=== PATIENT | female | born 1995 | race Two or more races ===

== ENCOUNTER 2024-11-10 08:15 | Emergency (ER) | payer MEDICAID, SELFPAY ==
[2024-11-10 08:16] VITALS: PULSE 95; RESP 17; O2SAT 97; BMI 17.6
[2024-11-10 08:21] VITALS: BP 121/84; PULSE 88; RESP 18; TEMP 36.6; O2SAT 97
--- NOTE | 2024-11-10 08:22 | PC.NURSE ---
RN CALLED NEXT OF KIN AFSHIN FOR SOME INFO REGARDING PT. AFSHIN REPORTS THAT THE SEIZURE LASTED FOR 3 MIN. AFSHIN ANSWERED SOME TRIAGE QUESTION SUCH TRAVEL HX, COVID HX, SMOKING HX
[2024-11-10 08:33] VITALS: BP 123/82; PULSE 89; RESP 15; TEMP 36.4; O2SAT 98
--- NOTE | 2024-11-10 08:55 | PC.NURSE ---
Patient was BIBA due to s/p SZ activity at home. Patient has hx of SZ with last known SZ was on 07/16/23. Patient is developmentally delayed, aphasic, and bedridden. Dr. Price at bedside assessing patient at this time. Mother at bedside POC updated.
--- NOTE | 2024-11-10 09:07 | EDNOTE_ITS ---
ED General RME/HPI General Chief complaint: Seizure Stated complaint: SEIZURE Time Seen by Provider: 11/10/24 08:32 Arrival date/time: 11/10/24 08:15 RME / HPI RME / HPI narrative: DR. NGO MAIN ED EVALUATION: 29 year old female with past medical history significant for seizures on Keppra, ataxia, brain anomaly involving the cerebellum, nonverbal, bed bound, and developmental delay presents to the Emergency Department with complaint of seizure. Last break-through seizure was 1 year and 3 months ago. Per mother, she always gives her medications; today, she did take it because she takes it after breakfast and she had her seizure before. No cough, congestion, runny nose, recent sickness, nausea, vomiting, diarrhea, or other symptoms at this time. PCP: [facility] Related Data Home Medications ?Medication ?Instructions ?Recorded ?Confirmed lorazepam 2 mg tablet (Ativan) 2 mg PO QDAY PRN Seizur e Activity 10/15/20 10/15/20 Previous Rx's ?Medication ?Instructions ?Recorded levetiracetam 100 mg/mL oral 125 mg (1.25 mL) PO QDAY #125 mL 10/15/20 solution (Keppra) Allergies Allergy/AdvReac Type Severity Reaction Status Date / Time No Known Allergies Allergy Verified 10/15/20 11:34 Review of Systems Review of Systems ROS Unobtainable: unobtainable due to medical condition Past Medical History Past Medical History NEUROLOGIC: Positive Neurological Disorders and Seizures OTHER HISTORY: Positive Developmental Delay Surgical History OTHER SURGICAL HX: Ataxia Social History SMOKING STATUS: Never smoker SECOND HAND EXPOSURE: No SUBSTANCE USE: does not use ALCOHOL: Never ED Exam Narrative Physical exam: Physical Exam: General: The vital signs were reviewed. Patient is nonverbal gives no eye contact in her usual debilitated state the patient is non-toxic, in no apparent distress and appears healthy with a patent airway, no respiratory distress and has no apparent circulatory problems. Head & Scalp: Normocephalic, atraumatic. Face: Appears normal and is without lesions, deformity. Ears: Left external pinna appears normal. Right external pinna appears normal. Eyes: The sclera is anicteric. No obvious photophobia. The Left and Right Orbit/Lid/Conjunctiva appears normal without swelling, discoloration or injection. Nose: The nose is without deformity, discharge or tenderness; Throat: Appears normal. The mucous membranes are pink and moist without exudates, redness or mass seen. The tongue appears normal. Neck: The neck is supple and no apparent mass or adenopathy. Chest: The chest wall is normal in size and symmetry and has no chest wall tenderness or crepitus. The patient displays normal ventilator effort without retractions, accessory muscle use and has adequate air movement bilaterally with no wheezes and no rales. Cardiovascular: Regular rate and rhythm; No murmurs, rubs, or gallops; Gastrointestinal: The abdomen appears normal. No obvious hernias or mass. The abdomen is soft and benign, non-distended, with no pain, no guarding and no rebound tenderness. Bowel sounds are present and normal sounding. No CVA tenderness. Genitourinary: Back/Spine: Thin normal inspection Extremities/Musculoskeletal/lymphatic: The bilateral upper and lower extremities are warm. There is no evidence of arterial insufficiency. There is no evidence of venous insufficiency/edema. The patient has very thin atrophic bilateral extremities with a slight contracture Skin: The skin is warm, dry and intact. No rashes. No petechia. No purpura. No abnormal bruising. The color is appropriate with no cyanosis. Mental status/Psychiatric: Mental status is nonverbal noninteractive her usual mental status. Neurological: The patient i lies on the bed with no verbal and noninteractive with no eye contact. Eyes are open. Bilateral extremities upper and lower are all contracted and very atrophic. This is not new this is part of her chronic neurological condition Course Quality Measures none Orders Category Date Time Status Miscellaneous Nursing Order NOW Care 11/10/24 09:07 Completed levETIRAcetam INJ [Keppra Inj] Med 11/10/24 09:07 Discontinued 250 mg IVP X1 ONE Vital Signs Vital signs: Vital Signs Temperature 97.8 F 11/10/24 08:21 Pulse Rate 88 11/10/24 08:21 Respiratory Rate 18 11/10/24 08:21 Blood Pressure 121/84 11/10/24 08:21 Pulse Oximetry (%) 97 11/10/24 08:21 Oxygen Delivery Method Room Air 11/10/24 08:21 Discharge Plan Plan Patient Disposition: HOME (Self Care) Prescriptions/Referrals Prescriptions/Med Rec: No Action lorazepam [Ativan] 2 mg Tablet 2 mg PO QDAY PRN (Reason: Seizure Activity) levetiracetam [Keppra] 100 mg/mL solution 125 mg PO QDAY Qty: 125 0RF Referrals: Amor Barrett PA-C [Primary Care Provider] - In 1 week Problem List Clinical Impression: Breakthrough seizure, Generalized seizure, Seizure disorder Patient/Caregiver Discharge Instructions Additional Instructions: Continue taking the seizure medicines as prescribed. If have another seizure you are welcome to give the oral Ativan as prescribed. Return if having 2 or more seizures. Contact your doctor to discuss changing doses and keep a diary of all breakthrough seizure events. Print Language: Yoruba Stand Alone Forms: [employer] Award Info., Patient Portal Info Letter MDM Narrative [facility] hospital course: Patient had a breakthrough seizure this morning evidently they were about to administer the morning Keppra. Mom did not give any breakthrough Ativan which is prescribed and present in the room. She evidently is on a low dose of Keppra 125 mg twice a day and evidently was on higher doses but caused too much sedation. Her last breakthrough event was over a year ago in June 2023 patient is well cared for is quite clean. It sounds like the low dosing of Keppra is been working for a long time see no reason to change it for a single breakthrough event since mom's wants to make sure her mental status is alert enough to swallow medications. At this time we will administer her morning p.o. med. Will give her a low dose of Keppra 250 mg to load her just for the interim to prevent another breakthro ugh seizure. Patient's vital signs are within normal limits. She does not appear to be ill in any other way and mom states there is no other illness ongoing. They are invited to follow-up with her neurologist for reevaluation. And will watch the kid for an hour after the dosing to make sure there is no other events and then dispo. No further workup is needed at this time as this patient is a well-established seizure patient. Patient been observed since taking the Keppra and has had no further seizures is in her usual state of health and mom knows how to manage and will take her home follow-up with her neurologist. Will continue the Keppra dosing even though is a low level 125 twice a day as mentioned above. Mom knows return if getting worse in any way. Estella Goode am scribing for and in the presence of Dr. Ngo. Clinical Information Provided by parent (mother) Medical Records Reviewed [facility] Meds/Rx Considered, not Ordered Describe details: As above see no reason to increase or change dosing of medications nor add a second medicine at this time. They do have a neurologist they can consult that person further Labs/Rad/Tests considered, not Ordered Describe details: At this time there is no reason to a medical workup as the patient does not appear to have any other acute illness concurrently. Chronic Illness/Social Conditions Add or document further as needed: seizures on Keppra, ataxia, brain anomaly involving the cerebellum, nonverbal, bed bound, and developmental delay EKG EKG not done Lab Interpretation Labs: see narrative above Imaging Imaging interpretation: see narrative above Medication Administration(s) Medication Administration History Discontinued Medications Levetiracetam (Levetiracetam Inj 100 Mg/Ml Vial 5ml) 250 mg IVP X1 ONE Stop: 11/10/24 09:08 Last Admin: 11/10/24 09:24 Dose: 250 mg Documented By: DHARMESH Diagnosis Differential diagnosis: syncope, breakthough seizure, seizure Most likely dx, and/or detailed dx discussion: Breakthrough seizure Generalized seizure Seizure disorder Dispositon Disposition: Discharge Home
[2024-11-10] MEDS: levETIRAcetam INJ 100 MG/ML VIAL 5ML 250 MG IVP (09:24)
[2024-11-10 10:19] VITALS: BP 125/65; PULSE 84; RESP 15; TEMP 36.6; O2SAT 97
[2024-11-10 11:14] VITALS: PULSE 86; RESP 16; TEMP 36.6; O2SAT 99
== END 2024-11-10 11:17 | disposition home or self-care (01) ==
PROVIDERS: Emergency Provider Emergency Medicine; PCP Physician Assistant Medical
DX: R56.9 Unspecified convulsions (principal)
CPT/HCPCS: 96374; 99284; J1953

== ENCOUNTER 2025-03-28 07:49 | Inpatient (IN) | payer MEDICARE, MEDICAID, SELFPAY ==
[2025-03-28] VITALS (11 sets, daily range): BP systolic 100–127; BP diastolic 71–93; PULSE 67–157; RESP 13–20; TEMP 36.2–38.1; O2SAT 97–100; BMI 12.1
--- NOTE | 2025-03-28 07:54 | XR_ITS ---
EXAMINATION: AP chest single view TECHNIQUE: AP portable semiupright chest single view Date and time: March 28, 2025, 0809 hours, comparison July 15, 2023 INDICATIONS: Seizure today. FINDINGS: Normal heart size Air distended stomach. No aspiration pneumonia. Mild osteopenia IMPRESSION: No aspiration pneumonia
--- NOTE | 2025-03-28 07:57 | XR_ITS ---
Examination: CT brain head without contrast. 2-D sagittal coronal reconstructions Date and time of exam: March 28, 2025, 0824 hours, comparison November 11, 2021 INDICATIONS: Seizures today CTDI: vol (mGy): 46 DLP: (mGycm): 847 Technique: Multiple CT axial sections of the brain have been obtained, 5 mm slice thickness. Contrast has not been administered. 2-D sagittal, coronal reconstructions have been obtained Low dose protocols were performed. One or more of the following dose reduction techniques were used; automated exposure control, adjustment of the mA and/or KV according to patient size, use of iterative reconstruction technique. Findings: Again noted moderate ventricular enlargement Again noted cerebral calcifications primarily in the basal ganglia No interval hemorrhage or mass effect Significant atrophy Cranial vault intact IMPRESSION: No interval hemorrhage or mass effect
--- NOTE | 2025-03-28 08:08 | EKG_ITS ---
[facility] Test Date: 2025-03-28 Pat Name: JORDAN LAINEZ Department: Room: - Gender: Female [employer]: : 1995 Requested By: Mariela Peoples Order Number: [id number] Reading MD: Mariela Peoples Measurements Intervals [place] Rate: 106 P: 88 KS: 108 QRS: 107 QRSD: 80 T: 37 QT: 321 QTc: 427 Interpretive Statements SINUS TACHYCARDIA WITH SHORT KS INTERVAL RIGHT AXIS DEVIATION [QRS AXIS > 100] Compared to ECG 10/15/2020 11:26:43 Right-axis deviation now present T-wave abnormality no longer present Possible ischemia no longer present /store/S0/[id number].pdf
--- NOTE | 2025-03-28 08:25 | EDNOTE_ITS ---
<Statement entered by Letty Pickett MD - 03/28/25 17:57> I, Letty Pickett MD, have reviewed the history, exam, and assessment of the patient. I have evaluated the patient independently and agree with the plan of care documented by [ ]. All diagnostic studies were reviewed and discussed. I confirm the diagnosis as documented by the Resident. I was present during the Medical Decision Making for this patient. The patient's plan of care was created between myself and the Resident and consistent with our discussion of the patient's case. ED Seizures RME/HPI General Chief Complaint: Seizure Stated Complaint: SEIZURE Time Seen by Provider: 03/28/25 07:50 Arrival date/time: 03/28/25 07:49 RME / HPI RME / HPI Narrative: Patient is a 29-year-old female with a past medical history of seizure, developmental delay, and non-verbal who presented to the emergency room via EMS with a chief complaint of seizure that was witnessed at home by her mother. Per EMS signout patient had a seizure that lasted approximately 5 minutes appearing tonic. Patient's mother gave 2 mg of Ativan during witnessed seizure. CBC CMP Lactic CK EKG Troponin UA Sepsis Alert -->HR 130s and T 100.2 LR Bolus and Zosyn Called Next on Kin, No Answer Patient's mother stated Keppra 1000 mg IV has previous caused somnolence--->500 mg IV X 1 Related Data Home Medications ?Medication ?Instructions ?Recorded ?Confirmed lorazepam 2 mg tablet (Ativan) 2 mg PO QDAY PRN Seizur e Activity 10/15/20 03/28/25 levetiracetam 100 mg/mL oral 125 mg PO BID 03/28/25 solution (Keppra) Allergies Allergy/AdvReac Type Severity Reaction Status Date / Time No Known Allergies Allergy Verified 10/15/20 11:34 Review of Systems Review of Systems Narrative Review of Systems: General appearance: NO weight change, NO fatigue, NO weakness, NO fever, NO chills, NO night sweats, No cough Skin: NO rash, NO itching, NO sores, NO moles HEENT: NO Trauma, NO nausea, NO vomiting, NO visual changes, NO blurry vision, NO double vision, NO tinnitus, NO vertigo, NO ear discharge, NO rhinorrhea, NO stuffiness, NO sneezing, NO allergy, NO epistaxis. NO Hoarseness, NO sore throat, NO swollen neck. Cardiac: NO Palpitations, NO dyspnea on exertion, NO orthopnea, NO paroxysmal nocturnal dyspnea, NO edema Respiratory: NO Shortness of Breath, NO Wheezing, NO Cough, NO Sputum, NO hemoptysis GI:NO appetite, NO nausea, NO vomiting, NO dysphagia, NO changes in bowel fr equency, NO stool color, NO diarrhea, NO constipation, NO hemetemesis, NO hemorrhoids, NO melena, NO hematechezia, NO abdominal pain, NO jaundice Renal: NO frequency, NO hesitancy, NO urgency, NO hematuria, NO nocturia, NO incontinence MSK: NO muscle weakness, NO gout, NO arthritis, NO muscle stiffness Neuro: NO headaches, NO tremors, NO weakness, NO paralysis, Yes seizures, NO loss of consciousness, NO numbness. Hem: NO anemia, NO easy bruising/bleeding, NO petechiae, NO purpura Endo: NO heat/cold intolerance, NO excessive sweating, NO polyuria, NO polydipsia, NO polyphagia, NO thyroid problems, NO diabetes Pysch: NO mood, NO anxiety, NO depression ED Exam Narrative Physical exam: General Appearance: Alert-NON Verbal uanble to follow commands, thin female who is lying in bed in no acute distress HEENT: Skull symmetrical and atraumatic. Conjunctivae pale pink and moist. Pupils equal, round, reactive to light and accommodation (PERRL). External ear without lesion or discharge. Mucos appears dry. Cardio: Normal Rate and Rhythm with S1 and S2 heart sounds. No murmurs or extra heart sounds auscultated. No bruits on carotid auscultation. No peripheral edema or cyanosis. Lungs: Symmetric with good expansion. Chest and back non-tender. Breath sounds vesicular without crackles, wheezing or rhonchi Abdomen: Non-tender, Non-distended, Normal Reactive Bowel Sounds Neuro: Alert, cooperative, oriented to person, place, and time. Speech clear. CN grossly intact. Upper motor strength 5/5 and Lower motor strength 5/5. Sensation intact. Course Quality Measures none Orders Category Date Time Status Bedside COVID-19 Antigen Test NOW Care 03/28/25 07:58 Active Bladder Scan NEEDED Care 03/28/25 08:00 Active Audiovisual Equipment Operator Q4H START 00 Care 03/28/25 07:54 Active Continuous Pulse Oximetry NOW Care 03/28/25 07:54 Completed In and Out Catheter PRN Care 03/28/25 08:00 Completed Nurse Swallow Screen X1 Care 03/28/25 09:[address] head/brain wo con Stat Exams 03/28/25 07:57 Completed XR chest 1V portable Stat Exams 03/28/25 07:54 Completed Blood Culture (Lab) Stat Lab 03/28/25 09:01 Received CBC Stat Lab 03/28/25 08:57 Completed CMP [Comprehensive Metabolic Panel] Stat Lab 03/28/25 08:57 Completed CRP [C-Reactive Protein] Stat Lab 03/28/25 08:57 Completed Creatine Kinase Stat Lab 03/28/25 08:57 Completed FLU A&B [Influenza A & B Rapid Panel] Routine Lab 03/28/25 08:40 Completed HCG,Qualitative Serum Stat Lab 03/28/25 08:57 Completed Lactic Acid [Lactate (Lactic Acid)] Stat Lab 03/28/25 08:57 Completed Mag [Magnesium] Stat Lab 03/28/25 08:57 Completed Phosphorous Stat Lab 03/28/25 08:57 Completed Procalcitonin Stat Lab 03/28/25 08:57 Completed Prolactin* Routine Lab 03/28/25 08:57 Received Troponin I Stat Lab 03/28/25 08:57 Completed Urinalysis, C/S if Indicated Stat Lab 03/28/25 08:10 Completed Urine Culture Stat Lab 03/28/25 08:10 Received ACETAMINOPHEN 325 mg SUPP [Tylenol Supp] Med 03/28/25 09:30 Discontinued 325 mg MI X1 ONE LORazepam [Ativan Inj] Med 03/28/25 08:01 Active 4 mg IVP Q5MIN PRN Piper/Tazo 3.375 gm Premix [Zosyn] Med 03/28/25 08:07 Discontinued 3.375 gm in 50 ml IV X1 Ringers Lactated 1000 ml [Lactated Ringers] 1,000 ml Med 03/28/25 08:06 Discontinued IV 999 mls/hr Ringers Lactated 1000 ml [Lactated Ringers] 1,000 ml Med 03/28/25 09:45 Discontinued IV 999 mls/hr levETIRAcetam INJ [Keppra Inj] Med 03/28/25 08:22 Discontinued 1,000 mg IVP X1 ONE levETIRAcetam INJ [Keppra Inj] Med 03/28/25 08:37 Discontinued 500 mg IVP X1 ONE EKG (RT) Routine RT 03/28/25 08:08 Draft Vital Signs Vital signs: Vital Signs Temperature 100.6 F H 03/28/25 07:55 Pulse Rate 145 H 03/28/25 07:55 Respiratory Rate 18 03/28/25 07:55 Blood Pressure 118/93 H 03/28/25 07:55 Pulse Oximetry (%) 97 03/28/25 07:55 Oxygen Delivery Method Room Air 03/28/25 07:55 Seizure Patient data External records reviewed:: [facility] previous records Clinical information provided by:: patient Social determinants that could affect healthcare access:: mental health (developmental Delay ) Patient has the following chronic illnesses:: history of seizure and developmental delays How is presenting disease/condition affected by chronic disease/condition?: exacerbated by (Seizure ) Evaluation data The following diagnostics were reviewed and interpreted by me:: lab results and radiology exam(s) Lab and/or radiology exams considered but not ordered:: none Interpretation Summary: Concern for sepsis secondary to UTI as noted by UA with positive esterase, elevated WBC count, and meeting SIRs criteria with tachycardia and pyrexia. Break through seizure complicated by UTI. - The patient's plan was discussed with attending Dr. Piyush Peoples MD PGY2 Internal Medicine Medications / Prescriptions Medications or Prescriptions considered but not ordered:: none Medication administrations:: Medication Administration History Acetaminophen (Acetaminophen 325 Mg Tablet) 650 mg PO Q6H PRN PRN Reason: Fever >100.4 or pain 1-6 Stop: 04/27/25 14:52 Heparin Sodium (Porcine) (Heparin Sod Inj 5000 Unit/Ml Vial) 5,000 unit SC Q12HR LANCE Stop: 04/11/25 20:59 Piperacillin/Tazobactam/Dextrose (Zosyn) 3.375 gm in 50 mls @ 12.5 mls/hr IV Q8HR LANCE; Protocol Stop: 04/04/25 21:59 Levetiracetam (Levetiracetam Inj 100 Mg/Ml Vial 5ml) 125 mg IVP Q12HR LANCE Stop: 04/27/25 20:59 Lorazepam (Lorazepam 2 Mg/Ml Vial) 4 mg IVP Q5MIN PRN PRN Reason: SEIZURES Stop: 03/31/25 08:00 Discontinued Medications Acetaminophen (Acetaminophen Supp 325 Mg Supp) 325 mg MI X1 ONE Stop: 03/28/25 09:31 Last Admin: 03/28/25 09:49 Dose: 325 mg Documented By: EF Lactated Ringer's (Lactated Ringers) 1,000 mls @ 999 mls/hr IV .Q1H1M ONE Stop: 03/28/25 09:06 Last Infusion: 03/28/25 09:47 Dose: Infused Documented By: Admin: 03/28/25 08:36 Dose: 999 mls/hr Documented By: EF Piperacillin/Tazobactam/Dextrose (Zosyn) 3.375 gm in 50 mls @ 100 mls/hr IV X1 ONE; Protocol Stop: 03/28/25 08:36 Last Infusion: 03/28/25 09:47 Dose: Infused Documented By: Admin: 03/28/25 09:11 Dose: 100 mls/hr Documented By: EF Lactated Ringer's (Lactated Ringers) 1,000 mls @ 999 mls/hr IV .Q1H1M ONE Stop: 03/28/25 10:45 Last Infusion: 03/28/25 11:03 Dose: Infused Documented By: Admin: 03/28/25 09:49 Dose: 999 mls/hr Documented By: EF Ceftriaxone Sodium/Dextrose (Rocephin/D5w 1gm Iv Premix) 1 gm in 50 mls @ 100 mls/hr IV QDAY LANCE Stop: 04/04/25 12:08 Last Infusion: 03/28/25 14:27 Dose: Infused Documented By: Admin: 03/28/25 12:59 Dose: 100 mls/hr Documented By: EF Piperacillin/Tazobactam/Dextrose (Zosyn) 3.375 gm in 50 mls @ 100 mls/hr IV X1 ONE; Protocol Stop: 03/28/25 16:44 Levetiracetam (Levetiracetam Inj 100 Mg/Ml Vial 5ml) 1,000 mg IVP X1 ONE Stop: 03/28/25 08:23 Last Admin: 03/28/25 08:41 Dose: Not Given Documented By: EF Non-Admin Reason: Cancelled by Provider Levetiracetam (Levetiracetam Inj 100 Mg/Ml Vial 5ml) 500 mg IVP X1 ONE Stop: 03/28/25 08:38 Last Admin: 03/28/25 08:43 Dose: 500 mg Documented By: EF Levetiracetam (Levetiracetam Liqd 500 Mg/5 Ml Udc) 125 mg PO BID LANCE Stop: 04/27/25 20:59 same as above Consultations Consultation(s) initiated? (list below): No Diagnosis Seizure Differential Diagnosis: focal seizure, generalized seizure and status epilepticus Most likely diagnosis given after review of the tests above:: Break through seizure likely secondary to sepsis given known source of infection UTI. Admission Indicated Admission indicated?: indicated Explain why admission is indicated or not indicated:: Concern for sepsis secondary to UTI as noted by UA with positive esterase, elevated WBC count, and meeting SIRs criteria with tachycardia and pyrexia. Break through seizure complicated by UTI. lactic acid 4.5 Admission Request Was there a request for admission?: Yes Admission Attestation Admission request attestation: Discussed case with Dr. Knox from Hospitalist service regarding admission. Discussed patients ED course, exam findings, labs, and radiology results. The Hospitalist agress to accept the patient for admission. Disposition Plan Disposition Plan: Admit Discharge Plan Plan Patient Disposition: Admit Acute Care w/in Hospital Patient condition on transfer: Stable Problem List Clinical Impression: Seizure
[2025-03-28 08:28] LABS: Collection Type, Urine Clean Catch
[2025-03-28] MEDS: RINGERS LACTATED 1000 ML 1,000 ML 999 ML IV ×2 (08:36→09:49)
[2025-03-28 08:43] LABS: Bacteria,Urine 3+; Bilirubin,Urine Negative (Negative); Blood,Urine 2+ (Negative); Glucose, Urine Negative (Negative); Ketones,Urine Negative (Negative); Leukocyte Esterase,Urine Positive (Negative); Nitrite,Urine Positive (Negative); PH,Urine 6.5 (5.0-7.0); Protein,Urine 1+ (Neg - Trace); RBC,Urine 25 /hpf (0-3); Specific Gravity,Urine 1.015 (1.001-1.035); Squamous Epithelial Cell,Urine 8 /hpf (0-5); Urobilinogen,Urine Negative mg/dL (0.0-1.0); WBC,Urine 747 /hpf (0-5)
[2025-03-28] MEDS: levETIRAcetam INJ 100 MG/ML VIAL 5ML 500 MG IVP (08:43)
[2025-03-28 08:59] LABS: Clarity,Urine Cloudy (Clear/Hazy); Color,Urine Lt-Yellow (Lt Yel-Yel); Culture Indicated,Urine Yes
[2025-03-28 09:10] LABS: Influenza A Ag Negative; Influenza B Ag Negative
[2025-03-28] MEDS: PIPER/TAZO 3.375 GM PREMIX 3.375 GM/50 ML BAG IV ×3 (09:11→21:26)
[2025-03-28 09:15] LABS: Lactate (Lactic Acid) 4.5 mMol/L (0.4-2.0)
[2025-03-28 09:25] LABS: Basophils # (Auto) 0.0 Thou/mm3 (0.0-0.2); Basophils % (Auto) 0 % (0-2.5); Eosinophils # (Auto) 0.0 Thou/mm3 (0.0-0.5); Eosinophils % (Auto) 0 % (0-10); Hematocrit 35.6 % (36.0-46.0); Hemoglobin 11.6 g/dL (12.0-16.0); Immature Granulocytes Auto 0.04 Thou/mm3 (0.00-0.00); Lymphocytes # (Auto) 0.7 Thou/mm3 (1.0-4.8); Lymphocytes % (Auto) 6 % (10-50); Mean Corpuscular HGB Conc 32.6 g/dl (31.0-37.0); Mean Corpuscular Hemoglobin 28.0 pg (25.0-35.0); Mean Corpuscular Volume 86 fL (80-100); Monocytes # (Auto) 0.2 Thou/mm3 (0.0-0.8); Monocytes % (Auto) 2 % (0-12); Neutrophils # (Auto) 9.5 Thou/mm3 (1.8-7.7); Neutrophils % (Auto) 91 % (37-80); Nucleated Red Blood Cell # 0.00 Thou/mm3 (0.00-0.00); Nucleated Red Blood Cell % 0 /100 WBC (0); Platelet Count 255 Thou/mm3 (140-440); RDW Standard Deviation 39.7 fL (36.4-46.3); Red Blood Count 4.14 Miln/mm3 (4.00-5.20); White Blood Count 10.4 Thou/mm3 (3.6-11.0)
[2025-03-28 09:32] LABS: HCG,Qualitative Serum Negative
[2025-03-28 09:45] LABS: Alanine Aminotransferase 12 U/L (10-49); Albumin, Serum 4.0 gm/dL (3.5-5.0); Albumin/Globulin Ratio 1.8 (1.2-2.2); Alkaline Phosphatase 82 U/L (46-116); Anion Gap 9 (7-16); Aspartate Amino Transferase 16 U/L (0-34); BUN/Creatinine Ratio 18 Ratio (12-20); Bilirubin,Total 0.6 mg/dL (0.3-1.2); Blood Urea Nitrogen 7 mg/dL (9-23); C-Reactive Protein 1.2 mg/dL (0.0-0.9); Calcium 8.7 mg/dL (8.3-10.6); Calcium (Corrected) 8.7 mg/dL (8.5-10.1); Carbon Dioxide 24.3 mMol/L (20.0-31.0); Chloride 105 mMol/L (98-107); Creatine Kinase 41 U/L (34-171); Creatinine (Component) 0.4 mg/dL (0.6-1.3); Globulin 2.2 gm/dL (2.3-3.5); Glucose 101 mg/dL (74-106); Magnesium 1.6 mg/dL (1.6-2.6); Osmolality,Calculated 273 (275-295); Phosphorous 3.2 mg/dL (2.4-5.1); Potassium 4.8 mMol/L (3.4-5.1); Procalcitonin 0.05 ng/ml (0.0-0.49); Sodium 138 mMol/L (136-145); Total Protein 6.2 gm/dL (5.7-8.2); Troponin I < 0.020 ng/mL (0.0-0.045); eGFR > 60 See Note
[2025-03-28] MEDS: ACETAMINOPHEN SUPP 325 MG SUPP PR (09:49)
[2025-03-28 12:06] LABS: Reflex Lactate? Y
[2025-03-28 12:49] LABS: Lactic Acid, 3 HR 1.6 mMol/L (0.4-2.0)
[2025-03-28] MEDS: cefTRIAXone/D5w 1gm IV premix 1 GM/50 ML BAG IV (12:59)
--- NOTE | 2025-03-28 14:31 | PD.RESHP ---
Documentation for date of: 03/28/25 [facility] History of Present Illness Chief complaint: Breakthrough seizure History of present illness: 29-year-old female with a past medical history of seizure disorder, developmental delay, and non-verbal baseline, presented via EMS after a 5-minute tonic seizure witnessed by her mother. Mother administered 2 mg of Ativan at home with resolution of seizure activity prior to EMS arrival. Per mother, last seizure occurred in June 2022, and none since then until today. Patient is non-verbal since 2018, completely dependent for all ADLs including feeding, toileting, and mobility. She eats slowly (taking ~3 hours per meal) and uses diapers. No recent trauma, falls, or illness noted. No complaints of pain or discomfort as patient cannot verbalize symptoms. Home medications include Keppra 125 mg BID and lorazepam 2 mg daily. Mother reports somnolence with higher Keppra doses (1000 mg IV). She follows with neurologist Dr. Paulino in [place]. No known allergies. In ED, patient was tachycardic to 130 bpm, temp 100.2?F -> sepsis alert called. Received LR bolus and started on Zosyn. Lactic acid 4.5 -> 1.[address] and CXR negative for acute process. UA concerning for UTI; urine and blood cultures pending. Exam Vital Signs Temp Pulse Resp BP Pulse Ox O2 Del Method 97.6 F 86 20 127/78 98 Room Air 03/28/25 14:02 03/28/25 14:02 03/28/25 14:02 03/28/25 14:02 03/28/25 14:02 03/28/25 14:02 Narrative Exam General: Thin, non-verbal female lying in bed, not in distress. HEENT: Normocephalic, atraumatic; mucous membranes dry. Cardiac: Ragular rate, regular rhythm, no murmurs or edema. Pulmonary: Clear to auscultation bilaterally, no wheezes or crackles. Abdomen: Soft, non-tender, non-distended, active bowel sounds. Extremities: No edema or cyanosis. Neuro: Alert, non-verbal at baseline, moves all extremities, no focal deficits noted. Skin: Warm, dry, intact. Results: Labs 03/29/25 05:36 03/29/25 05:36 Labs: Short CBC 03/28/25 Range/Units 08:57 WBC 10.4 (3.6-11.0) Thou/mm3 Hgb 11.6 L (12.0-16.0) g/dL Hct 35.6 L (36.0-46.0) % Plt Count 255 (140-440) Thou/mm3 BMP 03/28/25 08:57 Sodium 138 Potassium 4.8 Chloride 105 Carbon Dioxide 24.3 BUN 7 L Creatinine 0.4 L Glucose 101 Calcium 8.7 Cardiac Enzymes 03/28/25 Range/Units 08:57 Total Creatine Kinase 41 (34-171) U/L Troponin I < 0.020 (0.0-0.045) ng/mL Liver Function 03/28/25 Range/Units 08:57 Total Bilirubin 0.6 (0.3-1.2) mg/dL AST 16 (0-34) U/L ALT 12 (10-49) U/L Alkaline Phosphatase 82 (46-116) U/L Albumin 4.0 (3.5-5.0) gm/dL Urine 03/28/25 Range/Units 08:10 Urine Color Lt-Yellow (Lt Yel-Yel) Urine Clarity Cloudy A (Clear/Hazy) Urine pH 6.5 (5.0-7.0) Ur Specific [place] 1.015 (1.001-1.035) Urine Protein 1+ A (Neg - Trace) Urine Glucose (UA) Negative (Negative) Quality Measures Quality Measures none Medications Home Medications and Allergies Home Medications ?Medication ?Instructions ?Recorded ?Confirmed ?Type lorazepam 2 mg tablet (Ativan) 2 mg PO QDAY PRN Seizure Activity 10/15/20 03/28/25 History levetiracetam 100 mg/mL oral 125 mg PO BID 03/28/25 03/28/25 History solution (Keppra) Allergies Allergy/AdvReac Type Severity Reaction Status Date / Time No Known Allergies Allergy Verified 10/15/20 11:34 Visit Medications Ceftriaxone Sodium/Dextrose (Rocephin/D5w 1gm Iv Premix) 1 gm in 50 mls @ 100 mls/hr IV QDAY LANCE Stop: 04/04/25 12:08 Last Infusion: 03/28/25 14:27 Dose: Infused Lorazepam (Lorazepam 2 Mg/Ml Vial) 4 mg IVP Q5MIN PRN PRN Reason: SEIZURES Stop: 03/31/25 08:00 Discontinued Medications Acetaminophen (Acetaminophen Supp 325 Mg Supp) 325 mg [place] X1 ONE Stop: 03/28/25 09:31 Last Admin: 03/28/25 09:49 Dose: 325 mg Lactated Ringer's (Lactated Ringers) 1,000 mls @ 999 mls/hr IV .Q1H1M ONE Stop: 03/28/25 09:06 Last Infusion: 03/28/25 09:47 Dose: Infused Piperacillin/Tazobactam/Dextrose (Zosyn) 3.375 gm in 50 mls @ 100 mls/hr IV X1 ONE; Protocol Stop: 03/28/25 08:36 Last Infusion: 03/28/25 09:47 Dose: Infused Lactated Ringer's (Lactated Ringers) 1,000 mls @ 999 mls/hr IV .Q1H1M ONE Stop: 03/28/25 10:45 Last Infusion: 03/28/25 11:03 Dose: Infused Levetiracetam (Levetiracetam Inj 100 Mg/Ml Vial 5ml) 1,000 mg IVP X1 ONE Stop: 03/28/25 08:23 Last Admin: 03/28/25 08:41 Dose: Not Given Levetiracetam (Levetiracetam Inj 100 Mg/Ml Vial 5ml) 500 mg IVP X1 ONE Stop: 03/28/25 08:38 Last Admin: 03/28/25 08:43 Dose: 500 mg Assessment & Plan Plan 29-year-old non-verbal female with history of seizure disorder and developmental delay, presenting with a breakthrough tonic seizure likely triggered by urinary tract infection; currently hemodynamically stable, afebrile, and improving after IV fluids and antibiotics. # Epilepsy, unspecified Breakthrough tonic seizure, likely triggered by infection. Mother reports this is the first seizure since June 2022. No recent missed doses of medications. Patient is on Keppra 125 mg BID, and previous higher doses (1000 mg IV) caused somnolence. Plan: Continue Keppra 125 mg IV BID (avoid higher doses per mother) Continue Lorazepam 2 mg daily Neurology consult for optimization of therapy Seizure precautions Monitor for recurrence, consider EEG if recurrent # UTI UA strongly positive Pending Urine and blood culture Previous culture from 2019 revealed ESBL. Plan: Continue Zosyn dosing per pharmacy recs Monitor cultures -> adjust accordingly Trend WBC, BMP, and vitals Repeat lactate if clinically indicated # Developmental delay Patient is non-verbal baseline Chronic, dependent for all ADLs. Plan: Supportive care, involve mother in care plan Assist with feeding and hygiene Health Maintenance: Diet: Regular as tolerated, assist feeding DVT Prophylaxis: Heparin 5000 U SQ q12h GI Prophylaxis: Disposition: Admit to Telemetry for observation and IV antibiotics Code Status: Full ----- Plan discussed with attending physician Dr. Gustafson and senior resident Dr. Vern Arciniega MD PGY-1 Internal Medicine Attending Provider Attestation/Addendum 29-year-old female with developmental delay and seizure disorder who presented status post generalized tonic-clonic seizures. Noted to have 2 episodes and received lorazepam and loaded with Keppra. Breakthrough seizure/epilepsy likely related to UTI for which plan to continue the patient on IV antibiotic therapy. Of note, patient does have a history of ESBL sensitive to Zosyn.I reviewed above note and agree with findings and plans. I have also personally examined the patient with medicine team and went over assessment and plan with medical team including internet marketing manager and resident physician.
--- NOTE | 2025-03-28 19:34 | PD.RESCONSUL ---
HPI Data of Consult Consult date: 03/28/25 Requesting Physician: Farshad Gustafson MD Admitting Provider: Perez Daily MD Attending Provider: Shaina Gutierrez MD Primary Care Provider: Melba Trejo NP Consult Narrative History of present illness: Ms. Rodrigues is a 29-year-old female with past medical history of developmental delay, congenital hydrocephalus, epilepsy and nonverbal, bedbound at baseline, who was brought in by EMS after family witnessed a seizure lasting about 5 minutes at home. Per family at bedside, patient has not had a breakthrough seizures in 1992 and is only on home medication Keppra 100 mL twice a day. The reason she remains on such a low-dose is because she becomes extremely drowsy if any higher dose taken. Patient also had a sibling who recently at the age of 27 due to a congenital issue. Per family, patient was diagnosed with a brain anomaly at , however they do not know or understand anymore. Since admission, patient has been on Keppra 125 mg twice daily and as needed lorazepam. The follow-up with neurologist in [place]. In-house neurology was consulted for breakthrough seizure in the setting of possible UTI and unknown brain anomaly. 1900 on 03/28/2025: Patient remains unresponsive to stimulus, nonverbal and family at bedside. Brain MRI images reviewed with family, which shows marked hydrocephalus, appears to be chronic. Family declined increasing dose of Keppra at this time. Per mother at bedside, they were offered a ventriculoperitoneal shunt when she was diagnosed as a child, however family refused any surgical intervention at that time. It is likely that patient sibling also had a similar congenital issue and due to complications from the same. cc:: cc: Farshad Gustafson MD Review of Systems Review of Systems ROS Unobtainable: unobtainable due to medical condition Exam Vital Signs Temp Pulse Resp BP Pulse Ox O2 Del Method 97.6 F 84 17 127/92 H 98 Room Air 03/28/25 17:15 03/28/25 17:15 03/28/25 17:15 03/28/25 17:15 03/28/25 17:15 03/28/25 17:15 Narrative Exam Constitutional Nonverbal, bedbound at baseline.29 year-old female, unresponsive to stimulus, GCS 4 HEENT Vision grossly intact, PERRL. Patent nares. Trachea midline. Respiratory Chest normal on inspection and clear to auscultation bilaterally. Cardiovascular S1 and S2 audible, RRR. No murmurs or carotid bruit. No gross JVD. Abdominal Soft and BS + ; non tender to palpation in all quadrants. Genitourinary No bladder tenderness, no flank pain. Normal to palpation. Musculoskeletal Extremities tone within normal limits. No LE edema. Neurological Unable to assess CN II - XI1. noted purposeful movements in the upper and lower extremities, rigidity noted as ROM is checked. Rest: limited. No signs of meningeal irriation. Skin Warm, dry and intact. No apparent lesions. Results Labs 03/28/25 08:57 03/28/25 08:57 Labs: Short CBC 03/28/25 Range/Units 08:57 WBC 10.4 (3.6-11.0) Thou/mm3 Hgb 11.6 L (12.0-16.0) g/dL Hct 35.6 L (36.0-46.0) % Plt Count 255 (140-440) Thou/mm3 BMP 03/28/25 08:57 Sodium 138 Potassium 4.8 Chloride 105 Carbon Dioxide 24.3 BUN 7 L Creatinine 0.4 L Glucose 101 Calcium 8.7 Cardiac Enzymes 03/28/25 Range/Units 08:57 Total Creatine Kinase 41 (34-171) U/L Troponin I < 0.020 (0.0-0.045) ng/mL Liver Function 03/28/25 Range/Units 08:57 Total Bilirubin 0.6 (0.3-1.2) mg/dL AST 16 (0-34) U/L ALT 12 (10-49) U/L Alkaline Phosphatase 82 (46-116) U/L Albumin 4.0 (3.5-5.0) gm/dL Urine 03/28/25 Range/Units 08:10 Urine Color Lt-Yellow (Lt Yel-Yel) Urine Clarity Cloudy A (Clear/Hazy) Urine pH 6.5 (5.0-7.0) Ur Specific [place] 1.015 (1.001-1.035) Urine Protein 1+ A (Neg - Trace) Urine Glucose (UA) Negative (Negative) Quality Measures Quality Measures none Medications Home Medications and Allergies Home Medications ?Medication ?Instructions ?Recorded ?Confirmed ?Type lorazepam 2 mg tablet (Ativan) 2 mg PO QDAY PRN Seizure Activity 10/15/20 03/28/25 History levetiracetam 100 mg/mL oral 125 mg PO BID 03/28/25 03/28/25 History solution (Keppra) Allergies Allergy/AdvReac Type Severity Reaction Status Date / Time No Known Allergies Allergy Verified 10/15/20 11:34 Visit Medications Acetaminophen (Acetaminophen 325 Mg Tablet) 650 mg PO Q6H PRN PRN Reason: Fever >100.4 or pain 1-6 Stop: 04/27/25 14:52 Heparin Sodium (Porcine) (Heparin Sod Inj 5000 Unit/Ml Vial) 5,000 unit SC Q12HR LANCE Stop: 04/11/25 20:59 Piperacillin/Tazobactam/Dextrose (Zosyn) 3.375 gm in 50 mls @ 12.5 mls/hr IV Q8HR LANCE; Protocol Stop: 04/04/25 21:59 Levetiracetam (Levetiracetam Inj 100 Mg/Ml Vial 5ml) 125 mg IVP Q12HR LANCE Stop: 04/27/25 20:59 Lorazepam (Lorazepam 2 Mg/Ml Vial) 4 mg IVP Q5MIN PRN PRN Reason: SEIZURES Stop: 03/31/25 08:00 Discontinued Medications Acetaminophen (Acetaminophen Supp 325 Mg Supp) 325 mg [place] X1 ONE Stop: 03/28/25 09:31 Last Admin: 03/28/25 09:49 Dose: 325 mg Lactated Ringer's (Lactated Ringers) 1,000 mls @ 999 mls/hr IV .Q1H1M ONE Stop: 03/28/25 09:06 Last Infusion: 03/28/25 09:47 Dose: Infused Piperacillin/Tazobactam/Dextrose (Zosyn) 3.375 gm in 50 mls @ 100 mls/hr IV X1 ONE; Protocol Stop: 03/28/25 08:36 Last Infusion: 03/28/25 09:47 Dose: Infused Lactated Ringer's (Lactated Ringers) 1,000 mls @ 999 mls/hr IV .Q1H1M ONE Stop: 03/28/25 10:45 Last Infusion: 03/28/25 11:03 Dose: Infused Ceftriaxone Sodium/Dextrose (Rocephin/D5w 1gm Iv Premix) 1 gm in 50 mls @ 100 mls/hr IV QDAY LANCE Stop: 04/04/25 12:08 Last Infusion: 03/28/25 14:27 Dose: Infused Piperacillin/Tazobactam/Dextrose (Zosyn) 3.375 gm in 50 mls @ 100 mls/hr IV X1 ONE; Protocol Stop: 03/28/25 16:44 Last Infusion: 03/28/25 19:14 Dose: Infused Levetiracetam (Levetiracetam Inj 100 Mg/Ml Vial 5ml) 1,000 mg IVP X1 ONE Stop: 03/28/25 08:23 Last Admin: 03/28/25 08:41 Dose: Not Given Levetiracetam (Levetiracetam Inj 100 Mg/Ml Vial 5ml) 500 mg IVP X1 ONE Stop: 03/28/25 08:38 Last Admin: 03/28/25 08:43 Dose: 500 mg Levetiracetam (Levetiracetam Liqd 500 Mg/5 Ml Udc) 125 mg PO BID [facility] Stop: 04/27/25 20:59 Assessment & Plan Plan Patient is a 29-year-old female admitted for seizures in the setting of congenital hydrocephalus and developmental delay. Breakthrough seizures History of epilepsy Congenital hydrocephalus, untreated - Recent breakthrough seizure while on Keppra liquid 100 mL twice daily at home - Last seizure in 1992, has been seizure-free since then. At baseline is able to consume liquids and mashed food, gets fed by family, is able to sit upright but otherwise nonverbal and bedbound. - Was offered ventriculoperitoneal shunt as a child, family declined Recommendations: - Continue Keppra 125 twice daily at this time. Family declined increasing dose of Keppra due to increased drowsiness. - Family was counseled extensively at bedside. - Anticipate improvement with Keppra 125, underlying issue and likely to correct at this point due to chronic hydrocephalus. - Continue conservative management for now Other medical problems: Acute UTI Developmental delay Plan: Continue management per primary team Thank you for the consult. Neurology will continue to follow the case with you Plan of care discussed with attending Neurologist Dr Gutierrez, - Perez Daily M.D. PGY3 Disclaimer: Minor errors in director of retail merchandising may be present as this note was dictated using voice recognition software. Attending Provider Attestation/Addendum I personally have seen and examined the patient at the bedside and agree with residents findings, assessment and plan of care. Patient with congenital hydrocephalus, history of seizures and nonverbal not ambulatory. Will continue with the Keppra 125 mg twice a day as she tolerates. If her mental status is back to her baseline, we will consider discharge her back home
[2025-03-28] MEDS: levETIRAcetam INJ 100 MG/ML VIAL 5ML 125 MG IVP (20:56)
[2025-03-29] VITALS (7 sets, daily range): BP systolic 97–127; BP diastolic 60–90; PULSE 72–96; RESP 12–18; TEMP 36.2–36.7; O2SAT 98–100; BMI 12.1; BMI 12.0
[2025-03-29] MEDS: PIPER/TAZO 3.375 GM PREMIX 3.375 GM/50 ML BAG IV ×3 (05:48→23:00)
[2025-03-29 06:16] LABS: Basophils # (Auto) 0.0 Thou/mm3 (0.0-0.2); Basophils % (Auto) 1 % (0-2.5); Eosinophils # (Auto) 0.1 Thou/mm3 (0.0-0.5); Eosinophils % (Auto) 1 % (0-10); Hematocrit 32.9 % (36.0-46.0); Hemoglobin 11.4 g/dL (12.0-16.0); Immature Granulocytes Auto 0.01 Thou/mm3 (0.00-0.00); Lymphocytes # (Auto) 1.5 Thou/mm3 (1.0-4.8); Lymphocytes % (Auto) 23 % (10-50); Mean Corpuscular HGB Conc 34.7 g/dl (31.0-37.0); Mean Corpuscular Hemoglobin 28.9 pg (25.0-35.0); Mean Corpuscular Volume 83 fL (80-100); Monocytes # (Auto) 0.6 Thou/mm3 (0.0-0.8); Monocytes % (Auto) 8 % (0-12); Neutrophils # (Auto) 4.3 Thou/mm3 (1.8-7.7); Neutrophils % (Auto) 66 % (37-80); Nucleated Red Blood Cell # 0.00 Thou/mm3 (0.00-0.00); Nucleated Red Blood Cell % 0 /100 WBC (0); Platelet Count 223 Thou/mm3 (140-440); RDW Standard Deviation 38.8 fL (36.4-46.3); Red Blood Count 3.95 Miln/mm3 (4.00-5.20); White Blood Count 6.5 Thou/mm3 (3.6-11.0)
[2025-03-29 06:37] LABS: Alanine Aminotransferase 11 U/L (10-49); Albumin, Serum 3.6 gm/dL (3.5-5.0); Albumin/Globulin Ratio 1.6 (1.2-2.2); Alkaline Phosphatase 75 U/L (46-116); Anion Gap 10 (7-16); Aspartate Amino Transferase 15 U/L (0-34); BUN/Creatinine Ratio 13 Ratio (12-20); Bilirubin,Total 0.7 mg/dL (0.3-1.2); Blood Urea Nitrogen < 5 mg/dL (9-23); Calcium 8.5 mg/dL (8.3-10.6); Calcium (Corrected) 8.8 mg/dL (8.5-10.1); Carbon Dioxide 24.5 mMol/L (20.0-31.0); Chloride 106 mMol/L (98-107); Creatinine (Component) 0.4 mg/dL (0.6-1.3); Estimated Creatinine Clearance 95.1 mL/min (>60); Globulin 2.2 gm/dL (2.3-3.5); Glucose 90 mg/dL (74-106); Magnesium 1.7 mg/dL (1.6-2.6); Osmolality,Calculated 276 (275-295); Phosphorous 3.7 mg/dL (2.4-5.1); Potassium 3.6 mMol/L (3.4-5.1); Sodium 140 mMol/L (136-145); Thyroid Stimulating Hormone 0.52 uIU/mL (0.55-4.78); Total Protein 5.8 gm/dL (5.7-8.2); eGFR > 60 See Note
[2025-03-29 09:07] LABS: Free T4 (Free Thyroxine) 1.35 ng/dL (0.89-1.76)
[2025-03-29] MEDS: HEPARIN SOD INJ 5000 UNIT/ML VIAL SC ×2 (09:40→21:05)
[2025-03-29] MEDS: levETIRAcetam INJ 100 MG/ML VIAL 5ML 125 MG IVP ×2 (09:41→20:32)
--- NOTE | 2025-03-29 11:32 | ESPR_ITS ---
<Statement entered by Farshad Gustafson MD - 04/12/25 07:51> I reviewed above note and agree with findings and plans. I have also personally examined the patient with medicine team and went over assessment and plan with medical team including internet and e business project manager and resident physician. <Statement entered by Axel Porras MD - 04/02/25 13:42> I have personally seen and examined the patient, agree with residents assessment and plan Patient plan of care was discussed with the attending physician, Dr. Janay Porras, PGY2 Documentation for date of: 03/29/25 Subjective Subjective Interval history: Today, patient remains somnolent, likely medication-related, and family is attempting to arouse her for a repeat swallow study. Will reassess and restart diet once she?s more alert. Blood and urine cultures remain pending. Exam Vital Signs Temp Pulse Resp BP Pulse Ox O2 Del Method 98.1 F 78 18 98/68 99 Room Air 03/29/25 07:49 03/29/25 08:00 03/29/25 07:49 03/29/25 07:49 03/29/25 07:49 03/29/25 07:49 Narrative Exam General: Somnolent but arousable, non-verbal, no acute distress Cardiac: Regular rhythm, no murmurs, no edema Pulmonary: Clear to auscultation bilaterally Abdomen: Soft, non-tender, non-distended, bowel sounds present Neuro: Non-verbal baseline, follows limited commands when aroused Skin: Warm, dry, intact Objective Labs 03/29/25 05:36 03/29/25 05:36 Labs: Laboratory Results - last 24 hr 03/28/25 03/29/25 12:32 05:36 WBC 6.5 RBC 3.95 L Hgb 11.4 L Hct 32.9 L MCV 83 MCH 28.9 MCHC 34.7 RDW Std Deviation 38.8 Plt Count 223 D Neut % (Auto) 66 Lymph % (Auto) 23 Jack % (Auto) 8 Eos % (Auto) 1 Baso % (Auto) 1 Neut # (Auto) 4.3 Lymph # (Auto) 1.5 Jack # (Auto) 0.6 Eos # (Auto) 0.1 Baso # (Auto) 0.0 Immature Gran # (Auto) 0.01 H Absolute Nucleated RBC 0.00 Immature Gran % 0 Nucleated RBC % 0 Sodium 140 Potassium 3.6 D Chloride 106 Carbon Dioxide 24.5 Anion Gap 10 BUN < 5 L Creatinine 0.4 L Estim Creat Clear Calc 95.1 eGFR > 60 BUN/Creatinine Ratio 13 Glucose 90 Calculated Osmolality 276 Lactic Acid 1.6 Calcium 8.5 Corrected Calcium 8.8 Phosphorus 3.7 Magnesium 1.7 Total Bilirubin 0.7 AST 15 ALT 11 Alkaline Phosphatase 75 Total Protein 5.8 Albumin 3.6 Globulin 2.2 L Albumin/Globulin Ratio 1.6 TSH 0.52 L Free T4 1.35 Quality Measures Quality Measures none Assessment & Plan Assessment Current Active Medications: Generic Name Dose Route Start Last Admin Trade Name Freq PRN Reason Stop Dose Admin Acetaminophen 650 mg 03/28/25 14:53 Acetaminophen 325 Mg Tablet PO 04/27/25 14:52 Q6H PRN Fever >100.4 or pain 1-6 Heparin Sodium (Porcine) 5,000 unit 03/28/25 21:00 03/29/25 09:40 Heparin Sod Inj 5000 Unit/Ml Vial SC 04/11/25 20:59 5,000 unit Q12HR LANCE Administration Piperacillin/Tazobactam/Dextrose 3.375 gm in 50 mls @ 12.5 mls/hr 03/28/25 22:00 03/29/25 05:48 Zosyn IV 04/04/25 21:59 12.5 mls/hr Q8HR LANCE Administration Protocol Levetiracetam 125 mg 03/28/25 21:00 03/29/25 09:41 Levetiracetam Inj 100 Mg/Ml Vial 5ml IVP 04/27/25 20:59 125 mg Q12HR LANCE Administration Lorazepam 4 mg 03/28/25 08:01 Lorazepam 2 Mg/Ml Vial IVP 03/31/25 08:00 Q5MIN PRN SEIZURES Plan 29-year-old non-verbal female with history of seizure disorder and developmental delay, admitted for breakthrough tonic seizure likely secondary to urinary tract infection, currently somnolent but hemodynamically stable, awaiting repeat swallow study and pending culture results. # Epilepsy, unspecified Breakthrough tonic seizure, likely triggered by infection. Mother reports this is the first seizure since June 2022. No recent missed doses of medications. Patient is on Keppra 125 mg BID, and previous higher doses (1000 mg IV) caused somnolence Plan: * Continue Keppra 125 mg IV BID * Maintain seizure precautions * Monitor mental status and level of alertness * Proceed with swallow re-evaluation once more awake * Follow with neurology outpatient # Urinary tract infection UA positive; cultures pending. Patient afebrile, vitals stable. Plan: * Continue Zosyn 3.375 g IV q8h pending cultures * Monitor WBC, creatinine, urine output, and temperature # Somnolence Likely secondary to medication effect from ED loading dose of Keppra; improving slowly. Plan: * Monitor neuro checks and responsiveness * Avoid sedating medications # Thyroid function TSH 0.52, Free T4 pending. Plan: * Await results for full interpretation * No intervention at this time Health Maintenance: Diet: NPO pending swallow study DVT Prophylaxis: Heparin 5000 U SQ q12h GI Prophylaxis: PPI if NPO >24 hrs Disposition: Awaiting culture results and repeat swallow evaluation prior to discharge Code Status: Full ----- Plan discussed with attending physician Dr. Gustafson and senior resident Dr. Vern Arciniega MD PGY-1 Internal Medicine
--- NOTE | 2025-03-29 14:33 | ESPR_ITS ---
Documentation for date of: 03/29/25 Subjective Subjective Interval history: Ms. Rodrigues is a 29-year-old female with past medical history of developmental delay, congenital hydrocephalus, epilepsy and nonverbal, bedbound at baseline, who was brought in by EMS after family witnessed a seizure lasting about 5 minutes at home. Per family at bedside, patient has not had a breakthrough seizures in 1992 and is only on home medication Keppra 100 mL twice a day. The reason she remains on such a low-dose is because she becomes extremely drowsy if any higher dose taken. Patient also had a sibling who recently at the age of 27 due to a congenital issue. Per family, patient was diagnosed with a brain anomaly at , however they do not know or understand anymore. Since admission, patient has been on Keppra 125 mg twice daily and as needed lorazepam. The follow-up with neurologist in [place]. In-house neurology was consulted for breakthrough seizure in the setting of possible UTI and unknown brain anomaly. 03/28/2025: Patient remains unresponsive to stimulus, nonverbal and family at bedside. Brain MRI images reviewed with family, which shows marked hydrocephalus, appears to be chronic. Family declined increasing dose of Keppra at this time. Per mother at bedside, they were offered a ventriculoperitoneal shunt when she was diagnosed as a child, however family refused any surgical intervention at that time. It is likely that patient sibling also had a similar congenital issue and due to complications from the same. 03/29/2025: Patient seen and examined at bedside. She appears a little less somnolent today, is opening eyes slightly, not following with eyes but pupils now equal and reactive to light. At baseline, patient is able to sit [id number] and consume puree foods and liquids, she also opens eyes spontaneously and follows with her eyes. Per family, she sometimes smiles. Will continue Keppra 125mg BID for now, can DC once back to baseline. Exam Vital Signs Temp Pulse Resp BP Pulse Ox O2 Del Method 97.7 F 79 18 126/89 H 99 Room Air 03/29/25 12:00 03/29/25 12:00 03/29/25 12:00 03/29/25 12:00 03/29/25 12:00 03/29/25 12:00 Narrative Exam Constitutional Nonverbal, bedbound at baseline. 29 year-old female, unresponsive to stimulus, GCS 5 HEENT Vision grossly intact, partially opening her eyes, PERRLA. Patent nares. Trachea midline. Respiratory Chest normal on inspection and clear to auscultation bilaterally. Cardiovascular S1 and S2 audible, RRR. No murmurs or carotid bruit. No gross JVD. Abdominal Soft and BS + ; non tender to palpation in all quadrants. Genitourinary No bladder tenderness, no flank pain. Normal to palpation. Musculoskeletal Extremities tone within normal limits. No LE edema. Neurological Unable to assess CN II - XII. noted purposeful movements in the upper and lower extremities, rigidity noted as ROM is checked. Rest: limited. No signs of meningeal irritation. Skin Warm, dry and intact. No apparent lesions. Objective Labs 03/30/25 05:12 03/30/25 05:12 Labs: Laboratory Results - last 24 hr 03/29/25 05:36 WBC 6.5 RBC 3.95 L Hgb 11.4 L Hct 32.9 L MCV 83 MCH 28.9 MCHC 34.7 RDW Std Deviation 38.8 Plt Count 223 D Neut % (Auto) 66 Lymph % (Auto) 23 [place] % (Auto) 8 Eos % (Auto) 1 Baso % (Auto) 1 Neut # (Auto) 4.3 Lymph # (Auto) 1.5 [place] # (Auto) 0.6 Eos # (Auto) 0.1 Baso # (Auto) 0.0 Immature Gran # (Auto) 0.01 H Absolute Nucleated RBC 0.00 Immature Gran % 0 Nucleated RBC % 0 Sodium 140 Potassium 3.6 D Chloride 106 Carbon Dioxide 24.5 Anion Gap 10 BUN < 5 L Creatinine 0.4 L Estim Creat Clear Calc 95.1 eGFR > 60 BUN/Creatinine Ratio 13 Glucose 90 Calculated Osmolality 276 Calcium 8.5 Corrected Calcium 8.8 Phosphorus 3.7 Magnesium 1.7 Total Bilirubin 0.7 AST 15 ALT 11 Alkaline Phosphatase 75 Total Protein 5.8 Albumin 3.6 Globulin 2.2 L Albumin/Globulin Ratio 1.6 TSH 0.52 L Free T4 1.35 Quality Measures Quality Measures none Assessment & Plan Assessment Current Active Medications: Generic Name Dose Route Start Last Admin Trade Name Freq PRN Reason Stop Dose Admin Acetaminophen 650 mg 03/28/25 14:53 Acetaminophen 325 Mg Tablet PO 04/27/25 14:52 Q6H PRN Fever >100.4 or pain 1-6 Heparin Sodium (Porcine) 5,000 unit 03/28/25 21:00 03/29/25 09:40 Heparin Sod Inj 5000 Unit/Ml Vial SC 04/11/25 20:59 5,000 unit Q12HR LANCE Administration Piperacillin/Tazobactam/Dextrose 3.375 gm in 50 mls @ 12.5 mls/hr 03/28/25 22:00 03/29/25 05:48 Zosyn IV 04/04/25 21:59 12.5 mls/hr Q8HR LANCE Administration Protocol Levetiracetam 125 mg 03/28/25 21:00 03/29/25 09:41 Levetiracetam Inj 100 Mg/Ml Vial 5ml IVP 04/27/25 20:59 125 mg Q12HR LANCE Administration Lorazepam 4 mg 03/28/25 08:01 Lorazepam 2 Mg/Ml Vial IVP 03/31/25 08:00 Q5MIN PRN SEIZURES Plan Patient is a 29-year-old female admitted for seizures in the setting of congenital hydrocephalus and developmental delay. Breakthrough seizures History of epilepsy Congenital hydrocephalus, untreated - Patient with congenital hydrocephalus, history of seizures and nonverbal not ambulatory. - Recent breakthrough seizure while on Keppra liquid 100 mL twice daily at home - Last seizure in 1992, has been seizure-free since then. At baseline is able to consume liquids and mashed food, gets fed by family, is able to sit upright but otherwise nonverbal and bedbound. - Was offered ventriculoperitoneal shunt as a child, family declined Recommendations: - Continue Keppra 125 twice daily at this time. Family declined increasing dose of Keppra due to increased drowsiness. - Family was counseled extensively at bedside. - Anticipate improvement with Keppra 125, underlying issue and likely to correct at this point due to chronic hydrocephalus. - Continue conservative management for now. If her mental status is back to her baseline, we will consider discharge her back home Other medical problems: Acute UTI Developmental delay Plan: Continue management per primary team Thank you for the consult. Neurology will continue to follow the case with you Plan of care discussed with attending Neurologist Dr Gutierrez, - Perez Daily M.D. PGY3 Disclaimer: Minor errors in dining room busser may be present as this note was dictated using voice recognition software. Attending Provider Attestation/Addendum I personally have seen and examined the patient at the bedside and agreed with the resident's findings, assessment and plan of care. Patient has not had any seizures after admission, and her mental status is improving, close to baseline as per family. Continue with the Keppra and seizure precautions. Follow-up with neurology as an outpatient upon referral from her primary care physician.
[2025-03-30] VITALS: BP 82/60; PULSE 82; RESP 14; TEMP 36.6; O2SAT 99
[2025-03-30 01:00] VITALS: BP 98/74; PULSE 78
[2025-03-30 04:00] VITALS: BP 95/65; PULSE 87; RESP 12; TEMP 36.6; O2SAT 99
[2025-03-30] MEDS: PIPER/TAZO 3.375 GM PREMIX 3.375 GM/50 ML BAG IV (05:34)
[2025-03-30 06:00] VITALS: BMI 12.9
[2025-03-30 06:24] LABS: Basophils # (Auto) 0.0 Thou/mm3 (0.0-0.2); Basophils % (Auto) 0 % (0-2.5); Eosinophils # (Auto) 0.1 Thou/mm3 (0.0-0.5); Eosinophils % (Auto) 1 % (0-10); Hematocrit 38.9 % (36.0-46.0); Hemoglobin 13.0 g/dL (12.0-16.0); Immature Granulocytes Auto 0.01 Thou/mm3 (0.00-0.00); Lymphocytes # (Auto) 2.6 Thou/mm3 (1.0-4.8); Lymphocytes % (Auto) 35 % (10-50); Mean Corpuscular HGB Conc 33.4 g/dl (31.0-37.0); Mean Corpuscular Hemoglobin 28.1 pg (25.0-35.0); Mean Corpuscular Volume 84 fL (80-100); Monocytes # (Auto) 0.7 Thou/mm3 (0.0-0.8); Monocytes % (Auto) 9 % (0-12); Neutrophils # (Auto) 4.0 Thou/mm3 (1.8-7.7); Neutrophils % (Auto) 54 % (37-80); Nucleated Red Blood Cell # 0.00 Thou/mm3 (0.00-0.00); Nucleated Red Blood Cell % 0 /100 WBC (0); Platelet Count 257 Thou/mm3 (140-440); RDW Standard Deviation 39.5 fL (36.4-46.3); Red Blood Count 4.62 Miln/mm3 (4.00-5.20); White Blood Count 7.4 Thou/mm3 (3.6-11.0)
[2025-03-30 06:52] LABS: Alanine Aminotransferase 19 U/L (10-49); Albumin, Serum 3.9 gm/dL (3.5-5.0); Albumin/Globulin Ratio 1.3 (1.2-2.2); Alkaline Phosphatase 84 U/L (46-116); Anion Gap 11 (7-16); Aspartate Amino Transferase < 8 U/L (0-34); BUN/Creatinine Ratio 12 Ratio (12-20); Bilirubin,Total 0.7 mg/dL (0.3-1.2); Blood Urea Nitrogen 6 mg/dL (9-23); Calcium 9.1 mg/dL (8.3-10.6); Calcium (Corrected) 9.2 mg/dL (8.5-10.1); Carbon Dioxide 26.0 mMol/L (20.0-31.0); Chloride 103 mMol/L (98-107); Creatinine (Component) 0.5 mg/dL (0.6-1.3); Estimated Creatinine Clearance 81.7 mL/min (>60); Globulin 3.0 gm/dL (2.3-3.5); Glucose 95 mg/dL (74-106); Magnesium 2.0 mg/dL (1.6-2.6); Osmolality,Calculated 277 (275-295); Phosphorous 3.9 mg/dL (2.4-5.1); Potassium 4.0 mMol/L (3.4-5.1); Sodium 140 mMol/L (136-145); Total Protein 6.9 gm/dL (5.7-8.2); eGFR > 60 See Note
[2025-03-30 08:00] VITALS: BP 111/84; PULSE 81; RESP 12; TEMP 36.1; O2SAT 95
[2025-03-30] MEDS: levETIRAcetam INJ 100 MG/ML VIAL 5ML 125 MG IVP (08:16)
[2025-03-30] MEDS: HEPARIN SOD INJ 5000 UNIT/ML VIAL SC (08:16)
[2025-03-30 11:27] VITALS: BP 98/71; PULSE 85; RESP 12; TEMP 36.9; O2SAT 98
--- NOTE | 2025-03-30 12:02 | PC.SS ---
PUBLIC HEALTH OFFICER conducted bedside contact with the patient conduct initial assessment and to discuss discharge planning.? Patient is developmentally delayed and non-verbal at baseline.? At bedside with patient was sister, Kori Rodrigues .? Information obtained from the patient?s sister.? Patient resides at home with family.? Patient is not aligned with [facility].? Patient utilizes a wheelchair to assist with mobility.? Patient does not utilize home oxygen.? Patient requires assistance with completion of ADL?s.? Patient?s surrogate medical decision maker is mother, Vicente Rodrigues .? Patient?s PCP is Leslie Trejo.? Patient does not participate with dialysis.? Patient does not possess any specialty providers.? Patient utilizes [facility] for medication services.? Plan is for the patient to return home at the time of discharge.? PUBLIC HEALTH OFFICER submitted referral for [facility].? Copy of referral provided to the family.? PUBLIC HEALTH OFFICER informed family that patient possesses coverage for transport.? Family declined.? Family will provide transportation on behalf of the patient.? No further discharge needs identified by the patient.? No further intervention required at this time, social welfare clerk will be available to address any further concerns.? Next of Kin: Vicente Rodrigues D/C Plan: Home
--- NOTE | 2025-03-30 12:35 | ESDS_ITS ---
<Statement entered by Farshad Gustafson MD - 04/12/25 07:55> I reviewed above note and agree with findings and plans. I have also personally examined the patient with medicine team and went over assessment and plan with medical team including sourcing internship and resident physician. Planned Discharge Date 03/30/25 DS: Providers Provider Date of admission: 03/28/25 10:39 Primary care physician: Melba Trejo NP Admitting Provider: Farshad Gustafson MD Attending Provider on Admission: Farshad Gustafson MD Consults: 03/28/25 12:07 Consult to Neurology / Tele-Neurology Routine Comment: Consulting Provider: Michael Gutierrez 03/29/25 13:18 Referral Speech Therapy Routine Comment: Attending Provider on DC: Farshad Gustafson MD Discharging Provider: Julia Arciniega MD DS: Diagnosis Problem List Completed Was Problem List Reviewed/Reconciled?: Yes Hospital Course Hospital Course Hospital course: The patient is a 29-year-old non-verbal female with a history of seizure disorder and developmental delay, admitted after a breakthrough tonic seizure likely triggered by a urinary tract infection (UTI). The patient was started on IV Zosyn 3.375 g q8h for presumed infection. She was evaluated by neurology and cleared to continue Keppra 125 mg IV BID. The patient passed her swallow study and was started on a pur?ed diet, which she tolerated well. The blood cultures were negative after 24 hours, and the urine culture grew E. coli, which is sensitive to amoxicillin. As a result, she was transitioned to amoxicillin for outpatient treatment. The patient has made steady progress, with improved alertness and no further seizures. She is clinically stable and ready for discharge. Diagnoses during admission: #Seizure disorder #Urinary tract infection (UTI) (E. coli) #Developmental delay / non-verbal baseline #Somnolence secondary to Keppra dosing Discharge instructions: -Follow up with PCP within 1 week of discharge -Continue taking 5 more days of antibiotics: amoxicillin-clavulanate 5 ml twice a day -Continue rest of medications as previously prescribed, including Keppra 125 mg BID -Return to the ED or call EMS if symptoms return and/or worsen. ----- Plan discussed with attending physician Dr. Janay Arciniega MD PGY-1 Internal Medicine Time Spent with Patient Time attestation: Total time spent providing and/or coordinating discharge services: Time spent: Greater than 30 minutes Exam Vital Signs Temp Pulse Resp BP Pulse Ox O2 Del Method 98.4 F 85 12 98/71 98 Room Air 03/30/25 11:27 03/30/25 11:27 03/30/25 11:27 03/30/25 11:27 03/30/25 11:27 03/30/25 11:27 Narrative Exam General: Somnolent but arousable, non-verbal, no acute distress Cardiac: Regular rhythm, no murmurs, no edema Pulmonary: Clear to auscultation bilaterally Abdomen: Soft, non-tender, non-distended, bowel sounds present Neuro: Non-verbal baseline, follows limited commands when aroused Skin: Warm, dry, intact Discharge Plan Plan Patient Disposition: HOME (Self Care) Patient condition on transfer: Stable Care Plan Goals: Discharge Recommendations: -Follow up with PCP within 1 week of discharge -Continue taking 5 more days of antibiotics: amoxicillin-clavulanate 5 ml twice a day -Continue rest of medications as previously prescribed, including Keppra 125 mg BID -Return to the ED or call EMS if symptoms return and/or worsen. Prescriptions/Referrals Prescriptions/Med Rec: New amoxicillin-pot clavulanate 600-42.9 mg/5 mL suspension for reconstitution 5 ml PO BID 5 Days Qty: 50 0RF Continued lorazepam [Ativan] 2 mg Tablet 2 mg PO QDAY PRN (Reason: Seizure Activity) levetiracetam [Keppra] 100 mg/mL solution 125 mg PO BID Referrals: [facility] NUTRITIONALIST,Melba Langford NP [Primary Care Provider, Family Practice] Patient/Caregiver Discharge Instructions Discharge Activity: activity as tolerated Education Materials: Urinary Tract Infections in Women, ED CYSTITIS Female Adult Print Language: Armenian Stand Alone Forms: Martha Award Info., Patient Portal Info Letter Discharge Order Discharge Orders: Discharge (Routine); Ordered 03/30/25 Ordered By: Jane Knox Quality Discharge Quality Measures VTE prophylaxis
[2025-04-02 06:37] LABS: Prolactin* 21.7 ng/mL
== END 2025-03-30 11:45 | disposition home or self-care (01) | DRG 101 ==
LOC: SERX 10:45 → SERHOLD 10:56 → S2NX 17:16
PROVIDERS: Admitting Provider Internal Medicine; Emergency Provider Emergency Medicine; PCP Nurse Practitioner Family; Visit Provider Internal Medicine
DX: G40.909 Epilepsy, unspecified, not intractable, without status epilepticus (principal); N39.0 Urinary tract infection, site not specified; Z16.11 Resistance to penicillins; Z16.29 Resistance to other single specified antibiotic; Z16.12 Extended spectrum beta lactamase (ESBL) resistance; R62.50 Unspecified lack of expected normal physiological development in childhood; Q04.9 Congenital malformation of brain, unspecified; Q03.9 Congenital hydrocephalus, unspecified; B96.20 Unspecified Escherichia coli [E. coli] as the cause of diseases classified elsewhere; Z79.899 Other long term (current) drug therapy; Z74.01 Bed confinement status
CPT/HCPCS: 36415; 51701; 70450; 71045; 80053; 81001; 82550; 83605; 83735; 84100; 84145; 84146; 84439; 84443; 84484; 84703; 85025; 86140; 87040; 87077; 87086; 87186; 87502; 87635; 92526; 92610; 93005; 96361; 96365; 96366; 96375; 99285; J0696; J1644; J1953; J2543; J7120; A9270